=== PATIENT | female | born 1990 | race Hispanic/Latino ===

== ENCOUNTER 2021-03-18 00:46 | Emergency (ER) | payer SELFPAY ==
[2021-03-18 00:53] VITALS: BP 124/66; PULSE 72; RESP 18; TEMP 37.1; O2SAT 99
[2021-03-18 01:32] LABS: Alanine Aminotransferase 22 IU/L (<35); Albumin 4.1 g/dL (3.5-5.0); Albumin Globulin Ratio 1.2 (1.0-2.8); Alkaline Phosphatase 101 U/L (38-126); Aspartate Aminotransferase 25 IU/L (14-36); Bilirubin Total 0.2 mg/dL (0.2-1.3); Blood Urea Nitrogen 14 mg/dL (7-17); Calcium 9.1 mg/dL (8.4-10.2); Carbon Dioxide 26 mmol/L (22-32); Chloride 105 mmol/L (98-107); Estimated Glomerular Filt Rate > 60.0 mL/min (>60); Globulin 3.3 g/dL (1.7-4.1); Glucose 137 mg/dL (70-100); HEMOLYSIS < 15 (0-50); Lipase 73 U/L (23-300); Potassium 3.7 mmol/L (3.4-5.1); Sodium 139 mmol/L (137-145); Total Protein 7.4 g/dL (6.3-8.2)
[2021-03-18 01:34] LABS: Add Manual Diff / Slide Review NO; Basophils Absolute Auto 0 /uL (0-100); Basophils Percent Auto 0.5 % (0-2); Eosinophils Absolute Auto 100 /uL (0-450); Eosinophils Percent Auto 1.2 % (2-4); Hematocrit 38.7 % (36-46); Hemoglobin 12.7 g/dL (12.0-16.0); Lymphocytes Absolute Auto 1900 /uL (1100-4500); Lymphocytes Percent Auto 22.7 % (25-40); Mean Corpuscular HGB Conc 32.9 % (30-36); Mean Corpuscular Hemoglobin 26.9 PG (26-34); Mean Corpuscular Volume 81.6 fL (80-100); Monocytes Absolute Auto 300 /uL (0-900); Monocytes Percent Auto 3.7 % (3-14); Neutrophils Absolute Auto 6100 /uL (1500-7000); Neutrophils Percent Auto 71.9 % (50-75); Platelet Count 285 X10^3/uL (150-400); Red Blood Cell Count 4.74 X10^6/uL (4.0-5.2); Red Cell Distribution Width 13.9 % (11.6-14.8); White Blood Cell Count 8.5 X10^3/uL (4.5-11.0)
--- NOTE | 2021-03-18 02:10 | ED_ITS ---
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 She says she has had this pain previously she was told that she had a virus at her PCP. Today the pain is more intense and she threw up 2 times. She still feels nauseous but is no longer vomiting. She did not take anything for the pain. She denies any fever or chills. No diarrhea. She denies any chest pain. She said she thought was previously heartburn but she is not having chest discomfort. Related Data Previous Rx's Medication Instructions Recorded omeprazole magnesium 20 mg 20 mg PO QDAY #15 07/13/17 tablet,delayed release (Prilosec OTC) Allergies Allergy/AdvReac Type Severity Reaction Status Date / Time Penicillins [PENICILLINS] Allergy Unknown Unverified 07/29/17 12:52 Review of Systems Review of Systems Narrative: GENERAL: Denies chills, fatigue, malaise, fever, sweats, travel HEENT: Denies sinus pain, ear pain, sore throat, difficulty swallowing, neck pain RESPIRATORY: Denies dyspnea, cough, wheezing, hemoptysis, sputum. CARDIOVASCULAR: Denies chest pain, palpitations, orthopnea, edema GASTROINTESTINAL: See HPI : Denies dysuria, frequency, incontinence, hematuria, urinary retention, flank pain. MUSCULOSKELETAL: Denies weakness, joint pain, or bony pain SKIN: No rash, no erythema, no pruritus NEUROLOGIC: Denies weakness, dizziness, headache, numbness, change in speech, confusion PSYCHIATRIC: No concerning psychosocial issues. 12 point review of systems is negative except for those stated above and HPI Exam Initial Vital Signs Initial Vital Signs: Vital Signs Temperature 98.7 F 03/18/21 00:53 Pulse Rate 72 03/18/21 00:53 Respiratory Rate 18 03/18/21 00:53 Blood Pressure 124/66 03/18/21 00:53 Pulse Oximetry 99 03/18/21 00:53 GENERAL: Alert 30-year-old femaleand in [no acute] distress. HEENT: Head atraumatic,EOMI, pupils reactive, face symmetric, [moist] mucous membranes CARDIOVASCULAR: Regular rate and rhythm without murmurs, rubs or gallops. RESPIRATORY: Breath sounds equal bilaterally, no wheezes rales or rhonchi. ABDOMEN: Soft, mild epigastric tenderness minimal right upper quadrant pain no guarding or rebound : No CVA tenderness EXTREMITIES: Normal range of motion, no clubbing or edema. Neurovascularly intact NEUROLOGICAL: Alert and oriented x4.Normal gait and speech. SKIN: Warm, dry, no laceration, no petechiae, no rashes or lesions. Course Orders Ordered: ED Orders 03/18/21 01:00 Complete Blood Count AUTO DIFF Stat Comprehensive Metabolic Panel Stat Lipase Stat 03/18/21 02:54 US abdomen limited Stat 03/18/21 04:20 Urine Culture Stat Urine Microscopic Stat Discontinued Medications Ketorolac Tromethamine (Ketorolac 30 Mg/Ml Vial) 30 mg IV NOW ONE Stop: 03/18/21 02:20 Last Admin: 03/18/21 02:34 Dose: 30 mg Documented by: SOFI Ondansetron HCl (Ondansetron 4 Mg/2 Ml Inj) 4 mg IV NOW ONE Stop: 03/18/21 02:20 Last Admin: 03/18/21 02:35 Dose: 4 mg Documented by: SOFI Vital Signs Vital signs: Vital Signs - 8 hr 03/18/21 00:53 03/18/21 04:58 Temperature 98.7 F Pulse Rate 72 60 Respiratory Rate 18 Blood Pressure 124/66 123/78 Pulse Oximetry 99 100 MDM - Abdominal Pain Lab Data Result diagrams: 03/18/21 01:00 03/18/21 01:00 Labs: Lab Results 03/18/21 03/18/21 03/18/21 Range/Units 01:00 01:00 04:20 WBC 8.5 (4.5-11.0) X10^3/uL RBC 4.74 (4.0-5.2) X10^6/uL Hgb 12.7 (12.0-16.0) g/dL Hct 38.7 (36-46) % MCV 81.6 (80-100) fL MCH 26.9 (26-34) PG MCHC 32.9 (30-36) % RDW 13.9 (11.6-14.8) % Plt Count 285 (150-400) X10^3/uL Neut % (Auto) 71.9 (50-75) % Lymph % (Auto) 22.7 L (25-40) % [place] % (Auto) 3.7 (3-14) % Eos % (Auto) 1.2 L (2-4) % Baso % (Auto) 0.5 (0-2) % Neut # (Auto) 6100 (8209-4680) /uL Lymph # (Auto) 1900 (0208-0210) /uL [place] # (Auto) 300 (0-900) /uL Eos # (Auto) 100 (0-450) /uL Baso # (Auto) 0 (0-100) /uL Sodium 139 (137-145) mmol/L Potassium 3.7 (3.4-5.1) mmol/L Chloride 105 (98-107) mmol/L Carbon Dioxide 26 (22-32) mmol/L BUN 14 (7-17) mg/dL Creatinine 0.70 (0.52-1.04) mg/dL Estimated GFR > 60.0 (>60) mL/min BUN/Creatinine Ratio 20.0 (6-22) Glucose 137 H (70-100) mg/dL Calcium 9.1 (8.4-10.2) mg/dL Total Bilirubin 0.2 (0.2-1.3) mg/dL AST 25 (14-36) IU/L ALT 22 (<35) IU/L Alkaline Phosphatase 101 (38-126) U/L Total Protein 7.4 (6.3-8.2) g/dL Albumin 4.1 (3.5-5.0) g/dL Globulin 3.3 (1.7-4.1) g/dL Albumin/Globulin Ratio 1.2 (1.0-2.8) Lipase 73 (23-300) U/L Urine RBC None seen (0-5/HPF) Urine WBC 0-1/hpf (0-5/HPF) Ur Squamous Epith Cells 1-5 /hpf (0-5/HPF) Urine Bacteria Many (>30) H (None) Urine Mucus 1+ H (Negative) Ur Culture Indicated? Specimen cultured Point of care testing: Point of Care Testing Test Results Negative Urine Dip Bedside Urine Glucose Negative Bedside Urine Bilirubin - Negative Bedside Urine Ketone - Negative Urine Specific [place] 1.015 Bedside Urine Occult Blood - Negative Bedside Urine pH 8.0 Bedside Urine Protein - Negative Bedside Urine Urobilinogen - Negative Bedside Urine Nitrite - Negative Bedside Urine Leukocytes + 70 Esterase Imaging Data US - abdomen: Radiologist's Impression: Preliminary report: Gallbladder sludge and non mobile gallstones and gallbladder and. No finding of acute cholecystitis MDM Narrative Medical decision making narrative: Patient's blood work is overall reassuring. No sign of acute cholecystitis. Pain is well controlled after Toradol. I discussed case with surgeon Dr. Camacho who does state that she can be admit pedrito and have surgery later today otherwise she can follow-up outpatient. I have discussed findings and options with patient. At this time she has 2 small children at home she would need to arrange things. She says pain comes and goes once in a while it is not consistent. This time she would rather follow-up as an outpatient. The language line is again used to explain results and options. At this time patient does have leukocytes in her urine but no sign of her UTI Discharge Plan Departure Patient Disposition: Home Clinical Impression: Cholelithiasis Instructions: DI for Gallstones Activity Restrictions/Additional Instructions: Necesitara cirugia, carlos no emergente hoy. Por favor, llame para programar arden gillian in 2-3 berger. Si tiene justice, el aumento del dolor vuelve a la ED. You will need surgery for your gallbladder. Please call to schedule an appointment in 2-3 days. If you should have fever, increased pain or worsening symptoms return to the emergency department. Prescriptions: No Action omeprazole magnesium [Prilosec OTC] 20 MG tablet,delayed release (DR/EC) 20 mg PO QDAY Qty: 15 0RF Referrals: [facility] [Provider Group]
[2021-03-18] MEDS: KETOROLAC 30 MG/ML VIAL IV (02:34)
[2021-03-18] MEDS: ONDANSETRON 4 MG/2 ML INJ IV (02:35)
--- NOTE | 2021-03-18 02:54 | DI.US.S_ITS ---
PROCEDURE: US ABDOMEN LIMITED INDICATIONS: ruq pain TECHNIQUE: Real-time focused scanning was performed of the abdomen, with image documentation. COMPARISON: None. FINDINGS: Liver is normal in size and echotexture. 2. Gallstones in gallbladder sludge noted. 2 centimeter stone lodged in the gallbladder neck. No gallbladder wall thickening with gallbladder wall measuring 2.2 millimeters. No pericholecystic fluid. No sonographic Crawford sign. Biliary tree is nondilated. Common hepatic duct measures 4.1 millimeters. Pancreas is sonographically normal. IMPRESSION: Cholelithiasis with non mobile gallstone in the gallbladder neck. No sonographic findings of acute cholecystitis. If there is continued clinical concern for cholecystitis, a nuclear medicine HIDA scan should be considered for further evaluation. Dictated by: Xiomara King MD, PhD on 03/18/2021 at 7:53 Approved by: Xiomara King MD, PhD on 03/18/2021 at 7:54
[2021-03-18 04:41] LABS: Bacteria Urine Many (>30); RBC Urine None Seen (0-5/HPF); Squamous Epithelial Cell Urine 1-5 /HPF (0-5/HPF); WBC Urine 0-1/HPF (0-5/HPF)
[2021-03-18 04:42] LABS: Mucus Urine 1+ (Negative)
[2021-03-18 04:43] LABS: Culture Indicated Urine Specimen Cultured
[2021-03-18 04:58] VITALS: BP 123/78; PULSE 60; O2SAT 100
== END 2021-03-18 04:59 | disposition home or self-care (01) ==
PROVIDERS: Emergency Provider Emergency Medicine
DX: K80.20 Calculus of gallbladder without cholecystitis without obstruction (principal); R11.0 Nausea
CPT/HCPCS: 36415; 76705; 80053; 81003; 81015; 81025; 83690; 85025; 87086; 96374; 96375; 99284; J1885; J2405

== ENCOUNTER 2021-04-26 04:10 | Observation (INO) | payer SELFPAY ==
[2021-04-26] VITALS (23 sets, daily range): BP systolic 100–133; BP diastolic 56–77; PULSE 60–88; RESP 13–25; TEMP 36.3–37.1; O2SAT 95–100; BMI 27.1
--- NOTE | 2021-04-26 | PATH_ITS ---
[facility] Accession Number: [id number] . 01 Material submitted: . gallbladder - GALLBLADDER . 02 Diagnosis: Gallbladder, Cholecystectomy: Cholelithiasis with mild chronic cholecystitis. No evidence of neoplasm. MRV 05/01/2021 1447 Local . 02 Electronically signed: . Wong Seth MD, PhD, Pathologist NPI- [id number] . 01 Gross description: . Received in formalin, labeled with the patient's name and additionally labeled gallbladder is a gallbladder measuring 8.2 x 3.2 x 2.7 cm. The serosal surface is bedoya-pink smooth and glistening. The liver bed surface is shaggy and bedoya-green with a perforation measuring 1.6 x 0.3 cm. The cystic duct margin is inked blue. The specimen is opened through the defect through the cystic duct revealing two yellow-green bosselated calculi measuring 1.7 cm and 2.0 cm in greatest dimension. The gallbladder mucosa is bart green and velvety. The gallbladder wall measures 0.1-0.3 cm in thickness. No masses or lesions are identified. Molded Parts Inspector sections, including the cystic duct margin are submitted in cassette A1. ([id number]) /MRV 04/29/2021 1320 Local . 02 Pathologist provided ICD-10: K80.60 . 02 CPT . 270946 Performed at: 01 [facility] [address] [facility] [address], [place], [place] [id number] MD Butch Bright MD Phone: [phone] Performed at: 02 [facility] [address] [place], [place] [id number] MD Bridget Vazquez MD Phone: [phone]
--- NOTE | 2021-04-26 04:23 | DI.US.S_ITS ---
PROCEDURE: US ABDOMEN LIMITED INDICATIONS: RUQ PAIN TECHNIQUE: Real-time focused scanning was performed of the abdomen, with image documentation. COMPARISON: None. FINDINGS: Liver is normal in size and homogeneous in echotexture. Multiple gallstones noted. Largest gallstone measures 1.8 centimeters and is lodged in the gallbladder neck. No gallbladder wall thickening with gallbladder wall measuring 1.9 millimeters. No pericholecystic fluid. Positive sonographic Crawford sign reported. Biliary tree is nondilated. Common bile duct measures 3.7 millimeters. Head and body pancreas are sonographically normal. Tail of pancreas is obscured by bowel gas and cannot be evaluated. IMPRESSION: Cholelithiasis with large gallstone wedged in the gallbladder neck and positive Crawford sign. Findings suspicious for early cholecystitis. Recommend nuclear medicine HIDA scan for further evaluation. Dictated by: Xiomara King MD, PhD on 04/26/2021 at 7:45 Approved by: Xiomara King MD, PhD on 04/26/2021 at 7:47
[2021-04-26 04:38] LABS: Add Manual Diff / Slide Review NO; Basophils Absolute Auto 100 /uL (0-100); Basophils Percent Auto 0.6 % (0-2); Eosinophils Absolute Auto 200 /uL (0-450); Eosinophils Percent Auto 2.2 % (2-4); Hematocrit 36.9 % (36-46); Hemoglobin 12.4 g/dL (12.0-16.0); Lymphocytes Absolute Auto 3100 /uL (1100-4500); Lymphocytes Percent Auto 32.1 % (25-40); Mean Corpuscular HGB Conc 33.5 % (30-36); Mean Corpuscular Hemoglobin 27.1 PG (26-34); Monocytes Absolute Auto 600 /uL (0-900); Monocytes Percent Auto 5.9 % (3-14); Neutrophils Absolute Auto 5600 /uL (1500-7000); Neutrophils Percent Auto 59.2 % (50-75); Platelet Count 241 X10^3/uL (150-400); Red Blood Cell Count 4.56 X10^6/uL (4.0-5.2); Red Cell Distribution Width 13.8 % (11.6-14.8); White Blood Cell Count 9.5 X10^3/uL (4.5-11.0)
[2021-04-26 04:47] LABS: Alanine Aminotransferase 23 IU/L (<35); Albumin 4.1 g/dL (3.5-5.0); Albumin Globulin Ratio 1.2 (1.0-2.8); Alkaline Phosphatase 114 U/L (38-126); Aspartate Aminotransferase 31 IU/L (14-36); BUN Creatinine Ratio 24.6 (6-22); Bilirubin Total 0.2 mg/dL (0.2-1.3); Blood Urea Nitrogen 14 mg/dL (7-17); Calcium 8.9 mg/dL (8.4-10.2); Carbon Dioxide 27 mmol/L (22-32); Chloride 106 mmol/L (98-107); Estimated Glomerular Filt Rate > 60.0 mL/min (>60); Globulin 3.3 g/dL (1.7-4.1); Glucose 105 mg/dL (70-100); HEMOLYSIS 25 (0-50); Lipase 107 U/L (23-300); Potassium 3.5 mmol/L (3.4-5.1); Sodium 138 mmol/L (137-145); Total Protein 7.4 g/dL (6.3-8.2)
[2021-04-26] MEDS: KETOROLAC 30 MG/ML VIAL IV (04:58)
--- NOTE | 2021-04-26 05:26 | ED_ITS ---
HPI - Abdominal Pain General Chief Complaint: Abdominal Pain Stated Complaint: gallbladder pain x5 hours Time Seen by Provider: 04/26/21 04:15 Source: patient Mode of arrival: Ambulatory History of Present Illness HPI narrative: Patient is a 30-year-old female with known cholelithiasis. 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 She is scheduled to have surgery next week for cholecystectomy. However pain started this evening and she did not take anything for. Came to the ED for further evaluation. She has not had any fever or chills. No nausea or vomiting. Denies any chest pain palpitations or shortness of breath. Related Data Home Medications Medication Instructions Recorded Confirmed No Known Home Medications 03/26/21 04/17/21 Allergies Allergy/AdvReac Type Severity Reaction Status Date / Time Penicillins [PENICILLINS] Allergy Unknown Verified 03/26/21 16:15 Review of Systems Review of Systems Narrative: GENERAL: Denies chills, fatigue, malaise, fever, sweats, travel HEENT: Denies sinus pain, ear pain, sore throat, difficulty swallowing, neck pain RESPIRATORY: Denies dyspnea, cough, wheezing, hemoptysis, sputum. CARDIOVASCULAR: Denies chest pain, palpitations, orthopnea, edema GASTROINTESTINAL: See HPI : Denies dysuria, frequency, incontinence, hematuria, urinary retention, flank pain. MUSCULOSKELETAL: Denies weakness, joint pain, or bony pain SKIN: No rash, no erythema, no pruritus NEUROLOGIC: Denies weakness, dizziness, headache, numbness, change in speech, confusion PSYCHIATRIC: No concerning psychosocial issues. 12 point review of systems is negative except for those stated above and HPI Patient History Family History (Updated 03/26/21 @ 16:17 by Belinda Acevedo RN) Grandfather Diabetes mellitus Social History (Updated 03/26/21 @ 16:16 by Belinda Acevedo RN) marital status: household members: spouse and children Smoking Status: Never smoker alcohol intake: current substance use type: does not use Smoking Status: Never smoker Substance Use Type: does not use Exam Initial Vital Signs Initial Vital Signs: Vital Signs Temperature 97.3 F L 04/26/21 04:15 Pulse Rate 73 04/26/21 04:15 Respiratory Rate 18 04/26/21 04:15 Blood Pressure 133/64 04/26/21 04:15 Pulse Oximetry 99 04/26/21 04:15 GENERAL: Alert well-appearing 30-year-old female in no acute distress. HEENT: Head atraumatic,EOMI, pupils reactive, face symmetric, moist mucous membranes CARDIOVASCULAR: Regular rate and rhythm without murmurs, rubs or gallops. RESPIRATORY: Breath sounds equal bilaterally, no wheezes rales or rhonchi. ABDOMEN: Tender right upper quadrant positive Crawford sign EXTREMITIES: Normal range of motion, no clubbing or edema. Neurovascularly intact NEUROLOGICAL: Alert and oriented x4.Normal gait and speech. SKIN: Warm, dry, no laceration, no petechiae, no rashes or lesions. Course Orders Ordered: ED Orders 04/26/21 04:23 US abdomen limited Stat 04/26/21 04:30 Complete Blood Count AUTO DIFF Stat Comprehensive Metabolic Panel Stat Lipase Stat Discontinued Medications Ketorolac Tromethamine (Ketorolac 30 Mg/Ml Vial) 30 mg IV NOW ONE Stop: 04/26/21 04:23 Last Admin: 04/26/21 04:58 Dose: 30 mg Documented by: MADDIE Vital Signs Vital signs: Vital Signs - 8 hr 04/26/21 04:15 04/26/21 05:07 Temperature 97.3 F L Pulse Rate 73 60 Respiratory Rate 18 15 Blood Pressure 133/64 103/56 L Pulse Oximetry 99 100 MDM - Abdominal Pain Lab Data Result diagrams: 04/26/21 04:30 04/26/21 04:30 Labs: Lab Results 04/26/21 04/26/21 Range/Units 04:30 04:30 WBC 9.5 (4.5-11.0) X10^3/uL RBC 4.56 (4.0-5.2) X10^6/uL Hgb 12.4 (12.0-16.0) g/dL Hct 36.9 (36-46) % MCV 81.0 (80-100) fL MCH 27.1 (26-34) PG MCHC 33.5 (30-36) % RDW 13.8 (11.6-14.8) % Plt Count 241 (150-400) X10^3/uL Neut % (Auto) 59.2 (50-75) % Lymph % (Auto) 32.1 (25-40) % [place] % (Auto) 5.9 (3-14) % Eos % (Auto) 2.2 (2-4) % Baso % (Auto) 0.6 (0-2) % Neut # (Auto) 5600 (1124-0426) /uL Lymph # (Auto) 3100 (4866-4268) /uL [place] # (Auto) 600 (0-900) /uL Eos # (Auto) 200 (0-450) /uL Baso # (Auto) 100 (0-100) /uL Sodium 138 (137-145) mmol/L Potassium 3.5 (3.4-5.1) mmol/L Chloride 106 (98-107) mmol/L Carbon Dioxide 27 (22-32) mmol/L BUN 14 (7-17) mg/dL Creatinine 0.57 (0.52-1.04) mg/dL Estimated GFR > 60.0 (>60) mL/min BUN/Creatinine Ratio 24.6 H (6-22) Glucose 105 H (70-100) mg/dL Calcium 8.9 (8.4-10.2) mg/dL Total Bilirubin 0.2 (0.2-1.3) mg/dL AST 31 (14-36) IU/L ALT 23 (<35) IU/L Alkaline Phosphatase 114 (38-126) U/L Total Protein 7.4 (6.3-8.2) g/dL Albumin 4.1 (3.5-5.0) g/dL Globulin 3.3 (1.7-4.1) g/dL Albumin/Globulin Ratio 1.2 (1.0-2.8) Lipase 107 (23-300) U/L Point of care testing: Point of Care Testing Test Results Negative Urine Dip Bedside Urine Glucose Negative Bedside Urine Bilirubin - Negative Bedside Urine Ketone - Negative Urine Specific [place] 1.015 Bedside Urine Occult Blood - Negative Bedside Urine pH 7.5 Bedside Urine Protein - Negative Bedside Urine Urobilinogen - Negative Bedside Urine Nitrite - Negative Bedside Urine Leukocytes - Negative Esterase Imaging Data US - abdomen: Radiologist's Impression: Gallbladder distention with cholelithiasis and positive Crawford sign. No wall thickening or pericholecystic fluid. If necessary HIDA scan could be performed to further evaluate and exclude cholecystitis. MDM Narrative Medical decision making narrative: Patient's blood work is overall reassuring. Ultrasound shows persistent cholelithiasis without sign of cholecystitis. Dr. Camacho surgery has been called at this time agrees with moving surgery to today which patient agrees to as well. Pain is better after Toradol. Discharge Plan Departure Patient Disposition: Admitted as Observation Clinical Impression: Cholelithiasis Admit Date/Time: 04/26/21 06:34 Admit Provider: Tyrone Camacho
--- NOTE | 2021-04-26 08:12 | PC.NURSE ---
Day shift: Pt sleeping. No s/s of pain or discomfort at this time. Family member in room for support. Call light in reach.
[2021-04-26 09:28] LABS: COVID19 -Nasal RAPID Negative (Negative)
--- NOTE | 2021-04-26 10:19 | PC.NURSE ---
Day shift: Pt off unit to pre-op at approx 1000.
[2021-04-26] MEDS: LACTATED RINGERS 1,000 ML 42 ML IV ×2 (10:58→12:47)
--- NOTE | 2021-04-26 11:47 | P.HP_ITS ---
History of Present Illness History of Present Illness Date Patient Seen: 04/26/21 Time Patient Seen: 11:47 Chief complaint: gallbladder pain x5 hours Narrative: 30 year old Serbian speaking woman who has been seen recently for gallstones as an outpatient and was schedule for surgery in the next week. She came in overnight with significant increase in pain. Patient History Family & Social History Family History (Updated 03/26/21 @ 16:17 by Belinda Acevedo RN) Grandfather Diabetes mellitus Social History: household members spouse,children Prior Living Arrangements House Safety & Behavioral: Feels Safe in Current Yes Environment Been Physically Hurt or No Threatened By a Person Suicidal Ideation Description None Suicide Plan Description No Plan Tobacco & Substance use: Smoking Status Never smoker alcohol intake current Substance Use Type does not use Meds Home Medications and Allergies Home Medications Medication Instructions Recorded Confirmed Type No Known Home Medications 03/26/21 04/26/21 History Allergies Allergy/AdvReac Type Severity Reaction Status Date / Time Penicillins [PENICILLINS] Allergy Unknown Verified 03/26/21 16:15 Exam Vital Signs (past 8 hours): - 04/26/21 04:15 04/26/21 05:07 04/26/21 06:46 Temperature 97.3 F L Pulse Rate 73 60 72 Respiratory Rate 18 15 15 Blood Pressure 133/64 103/56 L 112/73 Pulse Oximetry 99 100 100 04/26/21 06:55 04/26/21 10:09 Temperature 97.5 F L 98.1 F Pulse Rate 69 70 Respiratory Rate 16 16 Blood Pressure 118/76 109/72 Pulse Oximetry 100 100 Oxygen Delivery Method Room Air Oxygen Flow Rate 0 Const General: healthy appearing Resp Effort & Inspection: normal respiratory effort Skin General: no rashes or lesions noted Neuro General: patient alert, patient awake and patient oriented x3 Objective Labs Result Diagrams: 04/26/21 04:30 04/26/21 04:30 Labs: Laboratory Results - last 24 hr 04/26/21 04/26/21 04/26/21 04:30 04:30 08:47 WBC 9.5 RBC 4.56 Hgb 12.4 Hct 36.9 MCV 81.0 MCH 27.1 MCHC 33.5 RDW 13.8 Plt Count 241 Neut % (Auto) 59.2 Lymph % (Auto) 32.1 [place] % (Auto) 5.9 Eos % (Auto) 2.2 Baso % (Auto) 0.6 Neut # (Auto) 5600 Lymph # (Auto) 3100 [place] # (Auto) 600 Eos # (Auto) 200 Baso # (Auto) 100 Sodium 138 Potassium 3.5 Chloride 106 Carbon Dioxide 27 BUN 14 Creatinine 0.57 Estimated GFR > 60.0 BUN/Creatinine Ratio 24.6 H Glucose 105 H Calcium 8.9 Total Bilirubin 0.2 AST 31 ALT 23 Alkaline Phosphatase 114 Total Protein 7.4 Albumin 4.1 Globulin 3.3 Albumin/Globulin Ratio 1.2 Lipase 107 SARS-CoV-2 (PCR) Negative Assessment & Plan Assessment and plan (1) Cholelithiasis: Status: Acute Plan 30 year old woman with gallstones with acute worsening of pain overnight. Will plan to proceed with laparoscopic cholecystectomy today. COVID-19 COVID-19 status: Negative Result date/Date tested (Pos, Neg/Pending): 04/26/21 Time Spent With Patient Critical Care time: I spent a total of [] minutes of critical care time on this patient's care today; this time is exclusive of procedural time.
[2021-04-26] MEDS: CEFAZOLIN 2 GM/20 ML SYRINGE IV (12:05)
--- NOTE | 2021-04-26 12:17 | SUR.OPER ---
Supine on padded OR bed, head on pillow, arms secured on padded arm boards at <90 degrees abduction, legs uncrossed, safety belt at thigh, tape over blanket over lower legs.
[2021-04-26] MEDS: LIDOCAINE 1% W/EPI 20 ML INJ (12:21)
[2021-04-26] MEDS: BUPIVACAINE 0.5% (PF) VIAL 30 ML INJ (12:23)
--- NOTE | 2021-04-26 14:02 | PM.OP.1 ---
Operative Date/Time/Diagnoses Date of procedure: 04/26/21 Time of procedure: 14:02 Pre-op diagnosis: Gallstones Post-op diagnosis: same Procedure & Clinicians Procedure: Laparoscopic cholecystectomy Same procedure as scheduled: Yes Indications: Gallstones Surgeon: Tyrone Camacho Anesthesia Type: General Operative Notes Estimated Blood Loss (mL): 35 Procedure in detail: The patient was given preoperative antibiotic. The patient was brought to the operating room, placed on the table in the supine position. General endotracheal anesthesia was induced. The abdomen was prepped and draped. A time-out was performed. We made a 1 cm infraumbilical incision. We dissected down to the base of the umbilical stalk using cautery. We grasped the umbilical stalk with a Cindy clamp to elevate the abdominal wall. We scored the fascia in the midline with cautery 1 cm. We pierced the peritoneum with a Peon clamp. The Татьяна port was placed and the abdomen was insufflated to 15 mmHg. A 10 mm 30 degree laparoscopic was inserted. There was no evidence of any injury from the entry. Next, we placed 5 mm ports in the subxiphoid position and right upper quadrant at the midclavicular line and anterior axillary line. Patient was then positioned in reverse Trendelenburg and the table was tilted to the left. The gallbladder was grasped at the dome and retracted cephalad. There were some adhesions of mesenteric tissue to the right liver which were carefully dissected with cautery to allow full retraction of the gallbladder. We then dissected the cystic structures with a combination of hook cautery and blunt dissection. We obtained a critical view. We placed hemoclips on the cystic duct and artery and divided the cystic duct and artery sharply between the clips. The gallbladder was then dissected off the liver and placed in a specimen retrieval bag. We irrigated the right upper quadrant and all the aspirate returned clear. We then removed the 5 mm ports under direct vision we removed the Татьяна port. We then injected some local into the fascia and closed the fascia with 2 interrupted 0 Vicryl sutures. The skin incisions were closed with 4 Monocryl and Steri-Strips were applied. Band-Aids were applied over the Steri-Strips. EBL: 10 mL Specimen: Gallbladder Post-operative Disposition: PACU
[2021-04-26] MEDS: fentaNYL 100 MCG/2 ML INJ IV (14:51)
--- NOTE | 2021-04-26 15:26 | PC.NURSE ---
Day shift: Pt back on AC unit from PACU at approx 1520. 98% RA. HR 72. Spouse in room for support. Call light in reach. The 4 lap site dressings are CDI. Pt is asleep at this time.
[2021-04-26] MEDS: HYDROCODONE/ACET 5/325 TABLET 1 TAB PO (17:08)
[2021-04-26] MEDS: MORPHINE 2 MG/ML INJ IV (17:51)
[2021-04-26] MEDS: SODIUM CHLORIDE 0.9% FLUSH 10 ML IV (21:13)
--- NOTE | 2021-04-26 23:21 | PC.NURSE ---
Patient is alert and oriented. Breath sounds diminished at bases but CTA with RA sat of 95%. HRR. Complained of sore throat so provided with ice chips and hard candy. Denies nausea. BT hypoactive and denies flatus. Voiding without dysuria, frequency or urgency and is continent. Is able to move self in bed and up to bathroom/ambulated in holly with SBA and tolerated well. Bandaids over lap sites are CDI. Instructed in splinting and CDB to prevent post op complications. Wearing bilateral calf SCD's. Fall risk score is low. Spouse rooming in.
[2021-04-27 04:00] VITALS: BP 118/64; PULSE 93; RESP 18; TEMP 36.5; O2SAT 96
[2021-04-27 07:30] VITALS: BP 110/67; PULSE 95; RESP 22; TEMP 36.6; O2SAT 96
[2021-04-27] MEDS: SODIUM CHLORIDE 0.9% FLUSH 10 ML IV (09:26)
--- NOTE | 2021-04-27 10:38 | PM.DS.1 ---
History of Present Illness History of Present Illness Chief complaint: gallbladder pain x5 hours Narrative: 30 year old Polish speaking woman who has been seen recently for gallstones as an outpatient and was schedule for surgery in the next week. She came in overnight with significant increase in pain. Discharge Providers Provider Date of admission: 04/26/21 06:34 Discharge Date: 04/27/21 Discharge provider: Tyrone Camacho MD Summary Hospital Course Hospital Course: The patient was admitted with a diagnosis of gallstones. She underwent a laparoscopic cholecystectomy on April 27, 2021. The next day she was feeling well tolerating a diet and greater to go home. She was discharged home. Exam Vital Signs (past 8 hours): - 04/27/21 04:00 04/27/21 07:30 Temperature 97.7 F 97.8 F Pulse Rate 93 H 95 H Respiratory Rate 18 22 Blood Pressure 118/64 110/67 Pulse Oximetry 96 96 Oxygen Delivery Method Room Air Oxygen Flow Rate 0 Objective Labs Result Diagrams: 04/26/21 04:30 04/26/21 04:30 [facility] Family History (Updated 03/26/21 @ 16:17 by Belinda Acevedo RN) Grandfather Diabetes mellitus Social History (Updated 03/26/21 @ 16:16 by Belinda Acevedo RN) marital status: household members: spouse and children Smoking Status: Never smoker alcohol intake: current substance use type: does not use Discharge Plan Discharge Plan Patient Disposition: Home Provider Discharge Comment: No lifting greater than 20 lb for 2 weeks. Okay to remove the outer dressing and shower after 24 hours. Leave the Steri-Strips on until they start to peel off in 1-2 weeks. Discharge orders & Medications Prescriptions: No Action No Known Home Medications 0RF Diet/Activity/Treatments Diet: Low-fat Visit Report/Discharge Packet Instructions: DI for Open Cholecystectomy, DI for Laparoscopy, Cholecystectomy -- Laparoscopic Surgery, [facility]: Wound Care Stand Alone Forms: Surgery Discharge Discharge Data Attending Provider: Tyrone Camacho
--- NOTE | 2021-04-27 10:48 | CM.DANOTE ---
DCP Assessment: patient is a 30 yr old female who was admitted for abdominal pain and underwent a Laparoscopic cholecystectomy preformed by Dr. Camacho. Patient currently lives in [place] with her and is independent at baseline and drives. patient is Luxembourgish speaking and her helps her communicate. Patient up and ambulating in the room without complication. Patient is currently a self pay patient. CM asked the patient about someone coming up and talking with the patient about medicaid options but patient was hesitant and said no. CM asked if she would like information on medicaid to apply at a later time and her said no. I:Self pay Plan: Dc home no need when medically stable for DC. No identified DC planning needs at this time. Bettie Regan Mangjames Discharge Planning/Care Management CM Discharge Assessment Start: 04/27/21 10:46 Freq: Status: Active Protocol: Document 04/27/21 10:46 HS (Rec: 04/27/21 10:48 HS [id number]) Discharge Planning Assessment Assigned Hr Shared Services Consultant Bettie Fournier RN Case Manger DPOA/Assigned Designee Name Sanya Jefferson () Contact Information [phone] Advance Directives? No History Provided By Significant Other,Medical Record Has Patient been admitted in last 30 No days? Prior Living Arrangements House Household Members spouse,children Type of transporation used prior to Drives own vehicle admit Independent with ADL's Yes Is patient alert and oriented? Yes Barriers to Discharge No Discharge Plan Home Referrals Initiated None needed Whiteboard Updated in Patient Room with Yes name and ext. # of Hr Shared Services Consultant Review Status In Process Next Review Type Continued Stay Review
--- NOTE | 2021-04-27 11:22 | PC.NURSE ---
Day shift: Paperwork signed and all questions answered. Paperwork printed in Kazakh. Pt's spouse in room for d/c teachings. Pt has all personal belongings. No MD scripts. Pt taken to car in by this junior copywriter. She tolerated well. Her spouse is driving her home. 4 lap site dressings remain CDI.
== END 2021-04-27 11:26 | disposition home or self-care (01) ==
LOC: ED 04:15 → AC 06:34
PROVIDERS: Admitting Provider Surgery; Emergency Provider Emergency Medicine; Referring Provider Emergency Medicine; Visit Provider Surgery
PROC: 0FT44ZZ Resection of Gallbladder, Percutaneous Endoscopic Approach (ICD-10-PCS; CPT 47562; principal; 2021-04-26 11:00)
DX: K80.10 Calculus of gallbladder with chronic cholecystitis without obstruction (principal); K66.0 Peritoneal adhesions (postprocedural) (postinfection); Z20.822 Contact with and (suspected) exposure to COVID-19
CPT/HCPCS: 47562; 36415; 76705; 80053; 81003; 81025; 83690; 85025; 87635; 96361; 96374; 96375; 99219; 99284; C9803; G0378; J0330; J0690; J1100; J1885; J2270; J2405; J2704; J3010

== ENCOUNTER 2022-10-21 21:10 | Observation (INO) | payer MEDICAID, SELFPAY ==
[2021-04-26 08:53] VITALS: BMI 27.1
[2022-10-21] MEDS: MORPHINE 4 MG/ML INJ 2 MG IM (22:46)
[2022-10-21] MEDS: diphenhydrAMINE 25 MG TABLET PO (22:46)
== END 2022-10-21 23:04 | disposition home or self-care (01) ==
PROVIDERS: Admitting Provider Family Medicine; Referring Provider Family Medicine; Visit Provider Family Medicine
DX: O47.1 False labor at or after 37 completed weeks of gestation (principal); O99.283 Endocrine, nutritional and metabolic diseases complicating pregnancy, third trimester; E03.9 Hypothyroidism, unspecified; Z3A.39 39 weeks gestation of pregnancy
CPT/HCPCS: 59025; 96372; G0378; G0379; J2270

== ENCOUNTER 2022-10-22 00:59 | Inpatient (IN) | payer MEDICAID, SELFPAY ==
[2021-04-26 08:53] VITALS: BMI 27.1
[2022-10-22 01:27] VITALS: BP 121/73
[2022-10-22] MEDS: LACTATED RINGERS 1,000 ML 100 ML IV ×2 (01:43→05:17)
[2022-10-22] MEDS: fentaNYL 100 MCG/2 ML INJ IV (01:44)
[2022-10-22 01:45] LABS: Add Manual Diff / Slide Review NO; Basophils Absolute Auto 0 /uL (0-100); Basophils Percent Auto 0.2 % (0-2); Eosinophils Absolute Auto 100 /uL (0-450); Eosinophils Percent Auto 0.8 % (2-4); Hematocrit 30.3 % (36-46); Hemoglobin 10.3 g/dL (12.0-16.0); Lymphocytes Absolute Auto 1900 /uL (1100-4500); Lymphocytes Percent Auto 21.1 % (25-40); Mean Corpuscular HGB Conc 33.8 % (30-36); Mean Corpuscular Hemoglobin 27.3 PG (26-34); Mean Corpuscular Volume 80.7 fL (80-100); Monocytes Absolute Auto 600 /uL (0-900); Monocytes Percent Auto 6.1 % (3-14); Neutrophils Absolute Auto 6500 /uL (1500-7000); Neutrophils Percent Auto 71.8 % (50-75); Platelet Count 174 X10^3/uL (150-400); Red Blood Cell Count 3.76 X10^6/uL (4.0-5.2); Red Cell Distribution Width 16.3 % (11.6-14.8); White Blood Cell Count 9.1 X10^3/uL (4.5-11.0)
[2022-10-22] MEDS: FENT 2MCG/ML BUPIV 0.125% EPI 200 MCG/100 ML PLAST..BAG 6 MCG EPIDURAL (02:15)
--- NOTE | 2022-10-22 02:18 | PM.AN.REGBLK ---
Regional Block Pre-procedure Procedure: Continuous Lumbar Epidural for L&D Attending OB provider: Ashly Catherine PMH/ROS narrative: term labor, no complications. PMH hypothyroid. ASA Class: II Labs: Hct 30.3 % (36-46) L 10/22/22 01:20 Plt Count 174 X10^3/uL (150-400) 10/22/22 01:20 Medications: Current Medications Generic Name Dose Route Start Last Admin Trade Name Freq PRN Reason Stop Dose Admin Calcium Carbonate 1,000 mg 10/22/22 01:24 Calcium Carbonate 500 Mg Tab PO Q4HR PRN Dyspepsia Carboprost Tromethamine 250 mcg 10/22/22 01:24 Carboprost 250 Mcg/Ml Ampul IM Q90M PRN Bleeding Diphenhydramine HCl 25 mg 10/22/22 01:43 Diphenhydramine 50 Mg/Ml Vial IV Q10M PRN Pruritis Fentanyl 100 mcg 10/22/22 01:24 10/22/22 01:44 Fentanyl 100 Mcg/2 Ml Inj IV 100 mcg Q1H PRN Administration Pain, Severe (7-10) Oxytocin/Lactated Ringer's 30 unit in 500 mls @ 200 mls/hr 10/22/22 01:24 Oxytocin Premix IV CONT PRN Bleeding Protocol Tranexamic Acid 1,000 mg/ 100 mls @ 200 mls/hr 10/22/22 01:24 Sodium Chloride IV NOW PRN Bleeding Lactated Ringer's 1,000 mls @ 100 mls/hr 10/22/22 01:30 10/22/22 01:43 Lactated Ringers IV 100 mls/hr CONT HELEN Administration FENT 2MCG/ML BUPIV 0.125% EPI 200 mcg in 100 mls @ 6 mls/hr 10/22/22 01:45 Fentanyl/Bupiv/Ns 2mcg/Ml - 0.125% EPIDURAL CONT HELEN Lidocaine HCl 20 ml 10/22/22 01:24 Lidocaine 1% 20 Ml INJ INTRA-OP PRN Post Delivery Methylergonovine Maleate 0.2 mg 10/22/22 01:24 Methylergonovine 0.2 Mg Tablet PO Q6HR PRN Heavy Bleeding Methylergonovine Maleate 0.2 mg 10/22/22 01:24 Methylergonovine 0.2 Mg/Ml Vial IM NOW PRN Bleeding Misoprostol 800 mcg 10/22/22 01:24 Misoprostol 200 Mcg Tablet SD NOW PRN Bleeding Misoprostol 400 mcg 10/22/22 01:24 Misoprostol 200 Mcg Tablet SL NOW PRN Bleeding Nalbuphine HCl 2.5 mg 10/22/22 01:43 Nalbuphine 20 Mg/Ml Ampul IV Q10M PRN Pruritis Naloxone HCl 0.2 mg 10/22/22 01:24 Naloxone 0.4 Mg/Ml Vial IV Q2MIN PRN Opiate Reversal Ondansetron HCl 4 mg 10/22/22 01:24 Ondansetron 4 Mg/2 Ml Inj IV Q4HR PRN Nausea And Vomiting Oxytocin 10 unit 10/22/22 01:24 Oxytocin 10 Unit/Ml Vial IM NOW PRN Bleeding Allergies: Allergies Allergy/AdvReac Type Severity Reaction Status Date / Time Penicillins [PENICILLINS] Allergy Unknown Verified 05/16/21 16:26 Procedure Insertion date: 10/22/22 Insertion time: 02:02 Prep/Local: betadine x3 and 1% lidocaine Interspace: L4-5 Patient position: sitting Needle: 18 gauge Solasta (CSE: 27g Pencan through Hustead, clear CSF, 2.5mg MPF bupiv) Loss of resistance with: saline FLIP at (cm): 4 Catheter placed at SKIN (cm): 10 Catheter in SPACE (cm): 6 Insertion: No CSF, No Blood, No Paresthesia with insertion, No Paresthesia with injection and No Test dose reaction Initial Medications TEST DOSE time: 02:04 TEST DOSE: 1.5% lidocaine with epinephrine 1:200k (mL): 3 BOLUS DOSE time: 02:06 BOLUS DOSE (mL): 4 BOLUS DOSE med: other (infusate) Infusion INFUSION: 0.125% bupivacaine and with fentanyl 2 mcg/mL Initial rate (mL/hr): 8 Subsequent interventions: Post-procedure Anesthesia time START: 01:55 Anesthesia time END: 05:59 Post-procedure Anesthesia Assessment: Yes CV function: HR/BP stable, Yes Resp function: RR/sat/airway adequate, Yes Post-op hydration adequate, Yes Pain control adequate, Yes Nausea & vomiting absent, Yes Temperature > 36 C, Yes Mental status appropriate and No Anesthesia complications
[2022-10-22] MEDS: OXYTOCIN PREMIX 30 UNIT/500 ML PLAST..BAG 250 UNIT IV (05:53)
--- NOTE | 2022-10-22 06:04 | P.HPOB_ITS ---
OB HPI Date/Time Date of admission: 10/21/22 Date Patient Seen: 10/22/22 History of Present Condition Chief complaint: Labor Estimated Gestational Age (weeks): 39w6d : 3 Para: 2 Narrative: 31yo at 39w6d who presented with regular painful contractions. Con tractions started yesterday late afternoon, becoming more intense since then. She was evaluated last night in L&D for labor, without cervical change. She was given Morphine and Benadryl, and returned with increasing frequency of contractions. No vaginal bleeding or LOF. The pts was complicated by hypothyroidism on Levothyroxine. She [facility]. Pt speaks Wallisian as primary language, plugger worker used. care: good care and initiated at week # (18) Dating criteria OB: based on LMP only Obstetrical complications: none Medical complications OB: other (Hypothyroidism) Preadmission Labs Last OB Lab Results: Blood Type A Positive 10/22/22 01:20 Antibody Screen Negative 10/22/22 01:20 Hematocrit 30.3 % (36-46) L 10/22/22 01:20 Hemoglobin 10.3 g/dL (12.0-16.0) L 10/22/22 01:20 External Labs HCT: 37.9 -: HBsAG: negative, HIV: negative, RPR/VDLR: negative, Chlamydia screen: negative, Gonorrhea screen: negative and GBS status: negative -: Rubella: immune and Varicella: immune HCAB: negative Genetic Screens: Cell-free DNA: Normal Evaluation Evaluation Baseline heart rate: 145 Variability: Moderate (11-25) monitor accelerations: Present Monitor Decelerations: Variable Contraction Frequency (minutes): 3 Uterine Contraction Intensity: Strong/Firm Status: Category ll Dilation (cm): 10 Effacement (%): 100 station: +4 [facility] Surgical History (Updated 10/22/22 @ 08:01 by Ashly Catherine MD) History of cholecystectomy Family History (Updated 03/26/21 @ 16:17 by Belinda Acevedo RN) Grandfather Diabetes mellitus Social History (Updated 03/26/21 @ 16:16 by Belinda Acevedo RN) marital status: household members: spouse and children Smoking Status: Never smoker alcohol intake: current substance use type: does not use Meds Home Medications and Allergies Home Medications Medication Instructions Recorded Confirmed Type levothyroxine 50 mcg tablet 50 mcg PO DAILY 10/21/22 10/22/22 History prenat.vits,javier,soy-wqua-dmgms 1 tab PO DAILY 10/22/22 10/22/22 History Allergies Allergy/AdvReac Type Severity Reaction Status Date / Time Penicillins [PENICILLINS] Allergy Severe Hives Verified 10/22/22 04:20 OB Exam Narrative Exam Narrative: Gen: NAD, sitting comfortably in bed, appears well CV: RRR, no murmurs Resp: clear to auscultation bilaterally Abd: soft, nontender, gravid Ext: no edema Objective Labs 10/22/22 01:20 Labs: Laboratory Results - last 24 hr 10/22/22 10/22/22 01:20 01:20 WBC 9.1 RBC 3.76 L Hgb 10.3 L Hct 30.3 L MCV 80.7 MCH 27.3 MCHC 33.8 RDW 16.3 H Plt Count 174 Neut % (Auto) 71.8 Lymph % (Auto) 21.1 L Orange % (Auto) 6.1 Eos % (Auto) 0.8 L Baso % (Auto) 0.2 Neut # (Auto) 6500 Lymph # (Auto) 1900 Orange # (Auto) 600 Eos # (Auto) 100 Baso # (Auto) 0 Blood Type A Positive Antibody Screen Negative Assessment and Plan Assessment and Plan Assessment and Plan narrative: 31yo at 39w6d here in active labor. GBS negative, Rh positive. - Expectant management, anticipate - FHT reassuring - GBS negative, no prophylaxis indicated - Epidural in place for pain control
--- NOTE | 2022-10-22 06:06 | P.PCNOB_ITS ---
Labor & Delivery Delivery date: 10/22/22 Intrapartal Events: None Cervical ripening method: none Induction method: none Delivery augmentation: rupture of membranes Delivery monitor: external FHT and external uterine Route of delivery: Episiotomy description: None L&D Laceration Description: None Quantitative Blood Loss: 50 Anesthesia Type: Epidural Complications: None Narrative: PROCEDURE: at 39w6d presented in active labor and was admitted to Labor and Delivery. The patient progressed through the 1st stage over 12 hours. Pain was controlled with an epidural. ROM occured at 5:47 with clear fluid. The maría elena ent progressed through the 2nd stage over 4 minutes and delivered a viable male with APGARs 8/9 at 5:49 via without complications. The cord was cut and clamped after it stopped pulsating. The placenta delivered with gentle cord traction, and appeared complete. The perineum and vagina were inspected with no lacerations. Needle and sponge counts were correct.? The vagina was inspected and no items were left in situ. Sarita was doing well with her and her , Sanya, at bedside. PREPROCEDURE DIAGNOSIS: Intrauterine at 39w6d GBS negative RH positive Hypothyroidism left renal pelviectasis POSTPROCEDURE DIAGNOSIS: Intrauterine at 39w6d, delivered Same as preprocedure [place] Baby 1: gender: Male Presentation: vertex Position: Right Occiput Anterior Placenta delivery description: Spontaneous Cord Vessel Description: 3 Vessels score (1 min): 8 score (5 min): 9 weight: 6 lb 15.184 oz Plan for aftercare: Routine care
[2022-10-23] MEDS: LEVOTHYROXINE 50 MCG TABLET PO (06:29)
[2022-10-23] MEDS: PRENATAL VIT,CALC/IRON/FOLIC 1 TABLET 1 TAB PO (09:03)
[2022-10-23] MEDS: FERROUS SULFATE 325 MG TABLET PO (09:03)
[2022-10-23] MEDS: DOCUSATE 100 MG CAPSULE PO (09:04)
== END 2022-10-23 14:30 | disposition home or self-care (01) | DRG 807 ==
PROVIDERS: Admitting Provider Family Medicine; Referring Provider Family Medicine; Visit Provider Family Medicine
DX: O99.284 Endocrine, nutritional and metabolic diseases complicating childbirth (principal); Z37.0 Single live birth; E03.9 Hypothyroidism, unspecified; Z3A.39 39 weeks gestation of pregnancy; Z67.10 Type A blood, Rh positive; O47.1 False labor at or after 37 completed weeks of gestation; O99.283 Endocrine, nutritional and metabolic diseases complicating pregnancy, third trimester
CPT/HCPCS: 36415; 59025; 59050; 59409; 85025; 86850; 86900; 86901; 96372; 99222; G0378; G0379; J2270; J2590; J3010